=== PATIENT | male | born 1965 | race Caucasian/White ===

== ENCOUNTER 2018-05-07 17:00 | Emergency (ER) | payer OTHER ==
[~2018-05-07] VITALS: Ht 170.2 cm; Wt 79.8 kg
--- NOTE | 2018-05-07 17:00 | NUR ---
BIB FOR SLURRED SPEECH PER FAMILY AND APHASIC, IQP=[id number]
--- NOTE | 2018-05-07 17:00 | NUR ---
TO ER BED 1, HOOKED TO MONITOR, CHANGED TO GOWN, AWAITING MD BETANCUR
[2018-05-07] MEDS ORDERED: LOSA1TAB36 PO (17:13)
--- NOTE | 2018-05-07 17:14 | NUR ---
ACTIVATED CODE STROKE
--- NOTE | 2018-05-07 17:15 | NUR ---
PLS REFER TO BLUE SHEET
[2018-05-07] MEDS ORDERED: IOHEXOL-350 100 ML VIAL IV ONE (17:18)
[2018-05-07] MEDS ORDERED: CT SWABBABLE VALVE TRANS SET 1 EA INFUS.SET MC ONE (17:18)
[2018-05-07] MEDS ORDERED: IV NS 0.9% 250 ML IV ONE (17:19)
[2018-05-07 17:22] LABS: BASOPHILS % (AUTO) 0.8 % (0.0-2.0); EOSINOPHILS % (AUTO) 1.8 % (0.0-6.0); HEMATOCRIT 45 % (39-51); HEMOGLOBIN 15.2 g/dL (13.5-17.5); LYMPHOCYTES # (AUTO) 1.8 /CMM (0.8-4.8); LYMPHOCYTES % (AUTO) 29.7 % (20.0-44.0); MEAN CORPUSCULAR HGB CONC 34 g/dl (31.0-36.0); MEAN CORPUSCULAR VOLUME 99 fL (80-96); MONOCYTES # (AUTO) 0.8 /CMM (0.1-1.30); MONOCYTES % (AUTO) 13.3 % (2.0-12.0); NEUTROPHILS # (AUTO) 3.2 /CMM (1.8-8.9); NEUTROPHILS % (AUTO) 54.4 % (43.0-81.0); PLATELET COUNT (AUTO) 164 /CMM (150-450); RED BLOOD CELL COUNT(AUTO) 4.53 MIL/uL (4.5-6.0); WHITE BLOOD COUNT (AUTO) 5.9 K/uL (4.3-11.0)
--- NOTE | 2018-05-07 17:24 | NUR ---
CALLED [phone] SPOKE WITH ANY CHOU WILL CALL US BACK
[2018-05-07 17:33] LABS: CALCIUM, SERUM 8.6 mg/dL (8.5-10.1); CARBON DIOXIDE 25 mmol/L (21-32); CHLORIDE 105 mmol/L (98-107); CREATININE 1.9 mg/dL (0.6-1.3); GLUCOSE 105 mg/dL (74-106); POTASSIUM 4.1 mmol/L (3.5-5.1); SODIUM SERUM 142 mmol/L (136-145); UREA NITROGEN, BLOOD 29 mg/dL (7-18)
[2018-05-07 17:39] LABS: ALANINE AMINOTRANSFERASE 77 U/L (12-78); ALBUMIN 3.6 g/dL (3.4-5.0); ALKALINE PHOSPHATASE 88 U/L (46-116); ASPARTATE AMINOTRANSFERASE 55 U/L (15-37); BILIRUBIN,DIRECT 0.1 mg/dL (0.0-0.2); BILIRUBIN,TOTAL 0.2 mg/dL (0.2-1.0); TOTAL PROTEIN, SERUM 7.7 g/dL (6.4-8.2)
--- NOTE | 2018-05-07 17:40 | NUR ---
PT SPEAKING TO DR CATHRYN VERGARA (TELESTROKE): TRANSFER KNITTER AT BEDSIDE
[2018-05-07 17:41] LABS: CHOLESTEROL 354 mg/dL (<200); HDL CHOLESTEROL 74 mg/dL (40-60); LDL 217 mg/dL (0-99); TRIGLYCERIDES 503 mg/dL (30-150)
[2018-05-07] MEDS ORDERED: ASPIRIN EC 325 MG TABLET.DR PO ONE ×2 (18:00→18:14)
[2018-05-07 18:22] VITALS: BP 100/64
[2018-05-07] MEDS ORDERED: IV NS 0.9% 1,000 ML BAG IV ONE (18:30)
--- NOTE | 2018-05-07 19:35 | NUR ---
REPORT GIVEN TO JAYNE ZARAGOZA FOR EMMANUELLE
--- NOTE | 2018-05-07 19:59 | NUR ---
[facility] PAGED
--- NOTE | 2018-05-07 20:57 | NUR ---
REPORT GIVEN TO JOSE CARLOS ZARAGOZA.
[2018-05-07] MEDS ORDERED: IV NS 0.9% 1,000 ML IV PRN (21:32)
--- NOTE | 2018-05-07 21:49 | NUR ---
ASSUMED CARE OF PATIET AT THIS TIME
--- NOTE | 2018-05-07 21:50 | NUR ---
Patient does not wish to proceed with medical care recommended by Dr. CASTELLON ). Patient given information related to possible complications, up to and including , which could occur as a result of leaving the hospital at this time. Patient verbalizes understanding of risks involved due to leaving against medical advice. Patient has signed AMA form.IV removed. Catheter intact and site benign. Pressure and 4x4 applied to site. No bleeding noted. PT AMBULATED OUT WITH STEADY GAIT NOTED.
[2018-05-07] MEDS ORDERED: MAG HYDROX/AL HYDROX/SIMETH 30 ML UDC PO PRN (22:00)
[2018-05-07] MEDS ORDERED: SIMVASTATIN 40 MG TABLET PO SCH (22:00)
[2018-05-07] MEDS ORDERED: BLOOD SUGAR DIAGNOSTIC 1 EACH STRIP IN SCH (22:00)
[2018-05-07] MEDS ORDERED: ACETAMINOPHEN 325 MG TABLET PO PRN (22:00)
--- NOTE | 2018-05-07 23:13 | NUR ---
EKG NOT PERFORMED; PATIENT IS AMA PER RN.
[2018-05-08] MEDS ORDERED: BLOOD SUGAR DIAGNOSTIC 1 EACH STRIP IN SCH
[2018-05-08] MEDS ORDERED: ASPIRIN EC 325 MG TABLET.DR PO SCH (09:00)
[2018-05-08] MEDS ORDERED: PANTOPRAZOLE 40 MG VIAL IV SCH (09:00)
[2018-05-08] MEDS ORDERED: DOCUSATE SODIUM 100 MG CAPSULE PO SCH (09:00)
--- NOTE | 2018-05-09 09:37 | NUR ---
Social work consult: Pt was discharge prior to sw being able to complete consult, per Resp note pt left AMA.
== END 2018-05-07 21:53 | disposition left against medical advice (07) ==
LOC: ER 17:04 → UNDOADMIN 20:40 → TELE 20:40
DX: I95.9 Hypotension, unspecified (principal); R47.01 Aphasia; N28.9 Disorder of kidney and ureter, unspecified; I10 Essential (primary) hypertension; Z79.899 Other long term (current) drug therapy
CPT/HCPCS: 36415; 70450; 71045; 80048; 80061; 80076; 82962; 83605; 84145; 84484; 85025; 85730; 87040 ×2; 87081; 93005; 99291; J7030; J7050; Q9967

== ENCOUNTER 2023-06-16 02:00 | Emergency (ER) | payer OTHER ==
[~2023-06-16] VITALS: Ht 170.2 cm; Wt 81.6 kg
[~2023-06-16 02:00] MED LIST: LOSA1TAB36 PO
[2023-06-16] MEDS ORDERED: KETOROLAC TROMETHAMINE INJ 30 MG/ML VIAL ONE (03:21)
[2023-06-16] MEDS ORDERED: ONDANSETRON HCL/PF 4 MG/2 ML VIAL ONE (03:21)
[2023-06-16] MEDS: KETOROLAC TROMETHAMINE INJ 30 MG/ML VIAL IV ONE (03:37)
[2023-06-16] MEDS: ONDANSETRON HCL/PF 4 MG/2 ML VIAL IV ONE (03:37)
[2023-06-16] MEDS: IV NS 0.9% 1,000 ML BAG IV ONE (03:37)
[2023-06-16 03:46] LABS: APPEARANCE,URINE SLIGHTLY CLOUDY (CLEAR); BILIRUBIN,URINE 1+ (NEGATIVE); BLOOD, URINE 3+ Ery/uL (NEGATIVE); COLOR,URINE YELLOW (YELLOW); KETONES,URINE 3+ mg/dL (NEGATIVE); LEUKOCYTE ESTERASE ,URINE NEGATIVE (NEGATIVE); NITRITE, URINE NEGATIVE (NEGATIVE); PH,URINE 5.5 (5.0-8.0); PROTEIN,URINE 2+ mg/dl (NEGATIVE); UGLUCOSE NEGATIVE (NEGATIVE)
[2023-06-16 03:51] LABS: BASOPHILS % (AUTO) 0.4 % (0.0-2.0); EOSINOPHILS % (AUTO) 0.7 % (0.0-6.0); HEMATOCRIT 39 % (39-51); HEMOGLOBIN 12.8 g/dL (13.5-17.5); LYMPHOCYTES # (AUTO) 0.6 K/uL (0.8-4.8); LYMPHOCYTES % (AUTO) 10.2 % (20.0-44.0); MEAN CORPUSCULAR HEMOGLOBIN 30 PG (26.0-33.0); MEAN CORPUSCULAR HGB CONC 33 g/dl (31.0-36.0); MEAN CORPUSCULAR VOLUME 92 fL (80-96); MONOCYTES # (AUTO) 0.6 K/uL (0.1-1.30); MONOCYTES % (AUTO) 9.7 % (2.0-12.0); NEUTROPHILS # (AUTO) 4.9 K/uL (1.8-8.9); PLATELET COUNT (AUTO) 121 K/uL (150-450); RED CELL DISTRIBUTION WIDTH 15.9 % (11.5-15.0); WHITE BLOOD COUNT (AUTO) 6.2 K/uL (4.3-11.0)
[2023-06-16 03:52] LABS: CALCIUM, SERUM 8.9 mg/dL (8.5-10.1); CREATININE 1.6 mg/dL (0.6-1.3); POTASSIUM 3.6 mmol/L (3.5-5.1)
[2023-06-16 03:53] LABS: ADD URINE CULTURE NO; BACTERIA,URINE 1+ /HPF (None Seen); RBC,URINE TOO NUMEROUS TO COUN /HPF (0-2); WBC,URINE NONE SEEN /HPF (0-3)
[2023-06-16 03:54] LABS: CALCIUM OXALATE CRYSTALS,UR Rare /HPF (None Seen); MUCUS,URINE Many /LPF (None Seen); SQUAMOUS EPITHELIAL CELL,UR None Seen /HPF (None Seen)
[2023-06-16 03:57] LABS: ALBUMIN 3.4 g/dL (3.4-5.0); BILIRUBIN,DIRECT 0.1 mg/dL (0.0-0.2); BILIRUBIN,TOTAL 0.6 mg/dL (0.2-1.0)
[2023-06-16] MEDS ORDERED: ONDA4TAB5 PO (05:28)
[2023-06-16] MEDS ORDERED: TAMS-12 PO (05:28)
[2023-06-16] MEDS ORDERED: HYDR-3972 PO (05:28)
[2023-06-16 05:45] VITALS: BP 142/98; TEMP 97.1; O2SAT 100
== END 2023-06-16 05:46 | disposition home or self-care (01) ==
LOC: ER 02:03
DX: N13.2 Hydronephrosis with renal and ureteral calculous obstruction (principal); I10 Essential (primary) hypertension
CPT/HCPCS: 99285; 74176; 96374; 96361; 96375; 85025; 80048; 80076; 81001; 36415; J1885; J2405; J7030